=== PATIENT | male | born 1945 | race Caucasian/White ===

== ENCOUNTER 2025-05-23 12:55 | Outpatient (AMB) | payer MEDICARE, OTHER, SELFPAY ==
--- NOTE | 2025-05-23 13:02 | A.OFFVIS_ITS ---
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 Health Risk Assessment Completed, no opioid use. Mini Cog score 5/5. Hypertension: The patient's blood pressure is 130/84 mmHg. He is on lisinopril 20 mg and denies any dizzy spells. Gout: The patient is on allopurinol 300 mg and reports no gout flares. Hyperlipidemia: The patient is taking pravastatin 20 mg for his cholesterol. History of Colonic Adenoma/ Prostate Cancer: The patient follows with urology and oncology at [facility] annually. He reports his PSA has been excellent. His last colonoscopy was in 2019 for the removal of a large adenoma, and he is unsure when his next one is due. Will obtain records. Hearing Loss: The patient wears hearing aids. [facility] Medical History (Updated 05/23/25 @ 17:04 by Whit Varma MD) Routine adult health maintenance Impaired fasting glucose Hyperlipidemia, unspecified Hypercalcemia Villous adenoma of rectum Prostate cancer Gout Primary hypertension Surgical History (Updated 05/23/25 @ 13:12 by Whit Varma MD) S/P hernia surgery History of rectal surgery Family History (Updated 05/23/25 @ 13:11 by Whit Varma MD) Other Coronary artery disease Questionnaire Medicare Wellness Checkup What is your age?: 80 or older What gender do you identify with?: male During the past 4 weeks, how much have you been bothered by emotional problems such as feeling anxious, depressed, irritable, sad or downhearted, and blue?: not at all During the past 4 weeks, has your physical & emotional health limited your social activities with family, friends, neighbors, or groups?: not at all During the past 4 weeks, how much bodily pain have you generally had?: mild pain During the past 4 weeks, was someone available to help you if you needed & wanted help?: yes, as much as I wanted During the past 4 weeks, what was the hardest physical activity you could do for at least 2 minutes?: moderate Can you get to places out of walking distance without help? (For eg., can you travel alone on buses, taxis or drive your car?): Yes Can you go shopping for groceries or clothes without someone's help?: Yes Can you prepare your own meals?: Yes Can you do your housework without help?: Yes Because of any health problems, do you need the help of another person with your personal care needs such as eating, bathing, dressing or getting around the house?: No Can you handle your own money without help?: Yes During the past 4 weeks, how would you rate your health in general?: very good During the past 4 weeks how have things been going for you?: pretty well Are you having difficulties driving your car?: no Do you always fasten your seat belt when you are in a car?: yes, usually During past 4 weeks, have you been bothered by the following: never: Falling or dizzy when standing up, Trouble eating well?, Teeth or denture problems? and Tiredness or fatigue?, sometimes: Problems using the telephone? and always: Sexual problems? Have you fallen 2 or more times in the past year?: No Are you afraid of falling?: No Are you a smoker?: no During the past 4 weeks, how many drinks of wine, beer, or other alcoholic beverages did you have?: 1 drink or less per week Do you exercise for about 20 minutes 3 or more times a week?: yes, most of the time Have you been given information to help with the following?: no: Hazards in your house that might hurt you? and no: Keeping track of your medications? How often do you have trouble taking medicines the way you have been told to take them?: I always take medicine as prescribed How confident are you that you can control & manage most of your health problems?: very confident What is your race?: White PHQ-9 Over the last 2 weeks, how often have you been bothered by any of the following problems? 1. Little interest or pleasure in doing things: not at all 2. Feeling down, depressed, or hopeless: not at all 3. Trouble falling or staying asleep, or sleeping too much: not at all 4. Feeling tired or having little energy: not at all 5. Poor appetite or overeating: not at all 6. Feeling bad about yourself - or that you are a failure or have let yourself or your family down: not at all 7. Trouble concentrating on things, such as reading the newspaper or watching television: not at all 8. Moving or speaking so slowly that other people could have noticed. Or the opposite - being so fidgety or restless that you have been moving around a lot more than usual: not at all 9. Thoughts that you would be better off or of hurting yourself in some way: not at all Total score: 0 Depression Screening Interpretation: Negative Depression Screening Done: Yes Source: Developed by Drs. José Manuel López, Tamara Castillo, Jovany Ramos and colleagues, with an educational ben from [employer]. Thrive Questionnaire Date Thrive assessed: 05/23/25 I am a: Patient What is your living situation today?: I have a steady place to live Within the past 12 months, did the food you bought not last and you didn't have the money to get more?: Never true Within the past 12 months, did you worry whether your food would run out before you got money to buy more?: Never true Do you have trouble paying for medicines?: No Do you have trouble getting transportation to medical appointments?: No Do you have trouble paying your heating and electricity bill?: No Do you have trouble taking care of your child, family member or friend?: No Do you have trouble with day-to-day activities such as bathing, preparing meals, shopping, managing finances, etc.?: No Are you currently unemployed and looking for a job?: No Are you interested in more education?: No Please select the resources that you would like help with: None Currently or been in a relationship where the following occur: No concerns reported THRIVE Score: 0 THAI-7 AMB Questionnaire THAI-7 Date THAI - 7 assessed: 05/23/25 Feeling nervous, anxious, or on edge: 0 = Not at all Not being able to stop or control worryin = Not at all Worrying too much about different things: 0 = Not at all Trouble relaxin = Not at all Being so restless that it is hard to sit still: 0 = Not at all Becoming easily annoyed or irritable: 0 = Not at all Feeling afraid as if something awful might happen: 0 = Not at all Total THAI-7 score (0-4 normal; 5-9 mild; 10-14 moderate; 15-21 severe): 0 Source: Developed by Drs. José Manuel López, Tamara Castillo, Jovany Ramos and colleagues, with an educational ben from [employer]. AUDIT C Alcohol Use Questionnaire (AUDIT-C) 1. How often do you have a drink containing alcohol?: Monthly or less 2. How many drinks containing alcohol do you have on a typical day when you are drinking?: 1 or 2 3. How often do you have six or more drinks on one occasion?: Never Total Score: 1 Review of Systems Narrative Review of Systems - General: Denies falls. Reports good mood. - Cardiovascular: Denies chest pain or dizzy spells. - Respiratory: Denies shortness of breath. - Musculoskeletal: Reports resolved back pain after yard work. - Endocrine: Denies symptoms of gout flares. Physical Exam Exam Exam: Physical Exam - Gen: NAD - HEENT: External auditory canals are clear bilaterally, with no redness or cerumen. Oropharynx is clear. - Neck: No cervical or supraclavicular lymphadenopathy. - Cardiovascular: Normal heart sounds. A soft murmur is present. - Lungs: Clear to auscultation bilaterally. - Abdomen: Soft, non-tender, with normal bowel sounds. - Extremities: No lower extremity edema. Vital Signs: Last Vital Signs Temp 96.9 F 05/23/25 13:06 Pulse 91 05/23/25 13:06 Resp 16 05/23/25 13:06 BP 130/84 05/23/25 13:06 BMI result Body Mass Index 23.7 Assessment & Plan Assessment & Plan (1) Routine adult health maintenance: Code(s): Z00.00 - Encounter for general adult medical examination without abnormal findings (2) Primary hypertension: Code(s): I10 - Essential (primary) hypertension (3) Hyperlipidemia, unspecified: Code(s): E78.5 - Hyperlipidemia, unspecified Qualifiers: Familial hypercholesterolemia type: unspecified type Hyperlipidemia type: familial hypercholesterolemia Qualified Code(s): E78.019 - Familial hypercholesterolemia, unspecified (4) Impaired fasting glucose: Code(s): R73.01 - Impaired fasting glucose (5) Prostate cancer: Code(s): C61 - Malignant neoplasm of prostate Plan Assessment and Plan 1. Medicare Annual Wellness Visit / Health Maintenance - The patient is here to re-establish care. - Plan includes ordering fasting labs (CBC, CMP, A1c, lipid panel, urine microalbumin) and advising the patient to get his flu shot. 2. Hypertension - Blood pressure is well-controlled at 130/84 mmHg on lisinopril 20 mg. - The plan is to continue the current medication. 3. Hyperlipidemia - Stable on pravastatin 20 mg. A lipid panel will be checked with routine labs. - The plan is to continue the current medication. 4. Gout - Stable with no flares on allopurinol 300 mg. - The plan is to continue the current medication. 5. History of Colonic Adenoma - The plan is for the patient to request a transfer of his complete records from [facility] and to confirm the due date for his next screening colonoscopy. 6. Heart Murmur - A long-standing soft murmur was noted on exam. - The patient denies symptoms like increased shortness of breath or leg swelling. - The plan is to review past records for a prior echocardiogram once they are received. 7. Wnoe-mnx-dxakvbm Supplements - The patient takes calcium, as recommended by [facility]. - Plan is to check calcium levels with routine labs and adjust as needed. Plan - Orders have been placed for fasting labs including a CBC, comprehensive metabolic panel, A1c, cholesterol panel, and a urine microalbumin. - The patient will continue his current medications: allopurinol 300 mg, lisinopril 20 mg, and pravastatin 20 mg. He will contact the office for refills as needed. - The patient was advised to obtain his flu vaccine. - The patient will contact [facility] to request a transfer of all his medical records to this office. - The patient will confirm with [facility] when he is due for his next screening colonoscopy. - Follow-up is scheduled in six months. Discussion Notes I discussed with the patient that his blood pressure is well-controlled on his current regimen. I noted the presence of a soft heart murmur and educated him on symptoms such as increased shortness of breath or leg swelling that would warrant concern. We discussed his vaccination status, and I encouraged him to get his flu shot. Patient Instructions - Go to a lab location to have your fasting bloodwork done. Do not eat or drink anything except water for 10 hours before the test. - Contact [facility]'s office and ask them to send all of your medical records to our office. - Ask your specialist at [facility] when you are due for your next colonoscopy. - Please get your flu shot. Orders: Orders Comprehensive Met. Panel Today E78.5 - Hyperlipidemia, unspecified, I10 - Essen tial (primary) hypertension, M10.9 - Gout, unspecified, R73.01 - Impaired fasting glucose Lipid Panel Today E78.5 - Hyperlipidemia, unspecified, I10 - Essential (primary) hypertension, M10.9 - Gout, unspecified, R73.01 - Impaired fasting glucose Hemoglobin A1c Today E78.5 - Hyperlipidemia, unspecified, I10 - Essential (primary) hypertension, M10.9 - Gout, unspecified, R73.01 - Impaired fasting glucose TSH reflex Free T4 Today C61 - Malignant neoplasm of prostate, E83.52 - Hypercalcemia Complete Blood Count Auto Diff Today E78.5 - Hyperlipidemia, unspecified, I10 - Essential (primary) hypertension, M10.9 - Gout, unspecified, R73.01 - Impaired fasting glucose Microalbumin, Random (w Creat) Today E78.5 - Hyperlipidemia, unspecified, I10 - Essential (primary) hypertension, M10.9 - Gout, unspecified, R73.01 - Impaired fasting glucose Medications: New multivitamin 1 tab PO DAILY zgzrrqpb-gri-kfdtj-fyk869-pzsm 500-500-66.7 mg (Ffnwwzesfns-Tgkfgsorbhq-OLU (with antiox)) tabs PO calcium carbonate (Calcium 600) 1,200 mg PO DAILY Patient Instructions: Check with your oncologist at [facility] regarding date of your next colonoscopy Have [facility] [place] all [place] to our office Get fasting labs, fast for 10 hours, you can drink water Quality Reporting (2019) Fall Risk Screening ([facility] 139) Last assessed Fall Risk: 05/23/25 Fall risk assessment: No Falls in past year Depression/Bipolar (159/160/161/177) PHQ-9: Total score: 0 Coding Level of Care Code Medicare Subsequent (G0439) Diagnoses Routine adult health maintenance Z00.00 Primary hypertension I10 Familial hypercholesterolemia, unspecified type E78.019 Familial hypercholesterolemia type: unspecified type Hyperlipidemia type: familial hypercholesterolemia Impaired fasting glucose R73.01 Prostate cancer C61
[2025-05-23 13:06] VITALS: BP 130/84; PULSE 91; RESP 16; TEMP 36.1; BMI 23.7
== END 2025-05-23 13:45 | disposition home or self-care (01) ==
LOC: HO.HMCHD 12:56
PROVIDERS: PCP Internal Medicine; Visit Provider Internal Medicine
DX: Z00.00 Encounter for general adult medical examination without abnormal findings (principal); I10 Essential (primary) hypertension; E78.019 Familial hypercholesterolemia, unspecified; C61 Malignant neoplasm of prostate; R73.01 Impaired fasting glucose

== ENCOUNTER 2025-05-30 09:46 | Outpatient (REF) | payer MEDICARE, OTHER, SELFPAY ==
--- OUTSIDE RECORDS SUMMARY | 2025-05-30 11:13 | XMS_ITS | Encounter Summary ---
Author Organization [facility] Address [address] [place] [address] Phone Care Team Providers Care Sole Stainer Name Role Phone Whit Varma MD Primary Care Provider + Chuck Nelson MD Unavailable [phone] Kt Her MD, DPHIL Unavailable [phone] Encounter Details Date Type Department Care Team (Late st Contact Info) Description 11/27/2019 Procedure Pass [facility] ENDO DEPT [address] [facility], 4th [place] [address] Social History Tobacco Use Types Packs/Day Years Used Date Smoking Tobacco: Former Cigarettes 0.5 50 Smokeless Tobacco: Never Alcohol Use Standard Drinks/Week Comments Yes 0 (1 standard drink = 0.6 oz pur e alcohol) Sex and Gender Information Value Date Recorded Sex Assigned at Male 11/03/2019 12:35 PM EDT Legal Sex Male 9:12 AM EST Gender Identity Not on file Sexual Orientation Not on file documented as of this encounter Plan of Treatment Upcoming Encounters Date Type Department Care Team (Late st Contact Info) Description 06/06/2025 10:00 AM EST Telemedicine [facility] [address] [facility], 7th Floor, [address] [place] [address] Chuck Nelson MD [address] [facility] [address] [place] [address] [email or web address] documented as of this encounter Visit Diagnoses Not on filedocumented in this encounter Care Teams Sole Stainer Relationship Specialty Start Date End Date Whit Varma MD PCP - General Internal Medicine 08/18/19 Chuck Nelson MD [address] [facility] [address] [place] [address] [email or web address] Consulting Provider Medical Oncology 01/09/20 Kt Her MD, DPHIL [address] [facility] [place] [address] [email or web address] Consulting Provider Radiation Oncology 02/02/20 documented as of this encounter Additional Source Comments The information contained in this document represents components of the legal health record. It is not the complete legal health record.[facility]
--- OUTSIDE RECORDS SUMMARY | 2025-05-30 11:13 | XMS_ITS | Encounter Summary ---
Author Organization [facility] Address [address] [facility] [address] [place] [address] Phone Care Team Providers Care Transportation Escort Name Role Phone Whit Varma MD Primary Care Provider + Chuck Nelson MD Unavailable [phone] Kt Her MD, DPHIL Unavailable + [phone] Encounter Details Date Type Department Care Team (Late st Contact Info) Description 01/24/2020 Procedure Pass [facility] Endoscopy Department [address] [place] [address] Social History Tobacco Use Types Packs/Day Years [...] Info) Description 06/06/2025 10:00 AM EST Telemedicine [facility] [address] [facility], 7th Floor, [address] [place] [address] Chuck Nelson MD [address] [facility] [address] [place] [address] [email or web address] documented as of this encounter Visit Diagnoses Not on filedocumented in this encounter Care Teams Transportation Escort Relationship Specialty Start Date End Date Whit Varma MD PCP - General Internal Medicine 08/18/19 Chuck Nelson MD [address] [facility] [address] [place] [address] [email or web address] Consulting Provider Medical Oncology 01/09/20 Kt Her MD, DPHIL [address] [facility] [place] [address] [email or web address] Consulting Provider Radiation Oncology 02/02/20 documented as of this encounter Additional Source Comments The information contained in this document represents components of the legal health record. It is not the complete legal health record.[facility]
--- OUTSIDE RECORDS SUMMARY | 2025-05-30 11:13 | XMS_ITS | Encounter Summary ---
Author Organization [facility] Address [address] [place] [address] Phone Care Team Providers Care Spiral Tube Winder Helper Name Role Phone Whit Varma MD Primary Care Provider + Chuck Nelson MD Unavailable [phone] Kt Her MD, DPHIL Unavailable [phone] Encounter Details Date Type Department Care Team (Late st Contact Info) Description 10/02/2019 Procedure Pass MRI, [facility] [place] [address] [address] [facility] [place] [id number] Social History Tobacco Use Types Packs/Day Years [...] Info) Description 06/06/2025 10:00 AM EST Telemedicine [facility] [address] [facility], 7th Floor, [address] [place] [address] Chuck Nelson MD [address] [facility] [address] [place] [address] [email or web address] documented as of this encounter Visit Diagnoses Not on filedocumented in this encounter Additional Health Concerns Infection Onset Date Last Indicated Resolved Time CoV-Risk Comment:Possible exposure during outpatient visit on 09/14/2019 09/19/2019 09/19/2019 10/03/2019 1:24 AM EDT documented as of this encounter Care Teams Spiral Tube Winder Helper Relationship Specialty Start Date End Date Whit Varma MD PCP - General Internal Medicine 08/18/19 Chuck Nelson MD [address] [facility] [address] [place] [address] [email or web address] Consulting Provider Medical Oncology 01/09/20 Kt Her MD, DPHIL [address] [facility] [place] [address] [email or web address] Consulting Provider Radiation Oncology 02/02/20 documented as of this encounter Additional Source Comments The information contained in this document represents components of the legal health record. It is not the complete legal health record.[facility]
--- OUTSIDE RECORDS SUMMARY | 2025-05-30 11:13 | XMS_ITS | Encounter Summary ---
Author Organization [facility] Address [address] [facility] [address] [place] [address] Phone Care Team Providers Care Reactor Kettle Operator Name Role Phone Whit Varma MD Primary Care Provider + Chuck Nelson MD Unavailable [phone] Kt Her MD, DPHIL Unavailable + [phone] Encounter Details Date Type Department Care Team (Late st Contact Info) Description 09/01/2019 Procedure Pass [facility] - MRI [address] [facility], [address]th [place] [address] Social History Tobacco Use Types Packs/Day Years Used Date Smoking Tobacco: Never Smokeless Tobacco: Never Sex and Gender Information Value Date Recorded Sex Assigned at Male 11/03/2019 12:35 PM EDT Legal Sex Male 9:12 AM EST Gender Identity Not on file Sexual Orientation Not on file documented as of this encounter Plan of Treatment Upcoming Encounters Date Type Department Care Team (Late st Contact Info) Description 06/06/2025 10:00 AM EST Telemedicine [facility] [address] [facility], 7th Floor, [address] [place] [address] Chuck Nelson MD [address] [facility] [address] [place] [address] [email or web address] documented as of this encounter Visit Diagnoses Not on filedocumented in this encounter Additional Health Concerns Infection Onset Date Last Indicated Resolved Time CoV-Risk Comment:Possible exposure during outpatient visit on 09/14/2019 09/19/2019 09/19/2019 10/03/2019 1:24 AM EDT documented as of this encounter Care Teams Reactor Kettle Operator Relationship Specialty Start Date End Date Whit Varma MD PCP - General Internal Medicine 08/18/19 Chuck Nelson MD [address] [facility] [address] [place] [address] [email or web address] [email or web address] Provider Medical Oncology 01/09/20 Kt Her MD, DPHIL [address] [facility] [place] [address] [email or web address] Consulting Provider Radiation Oncology 02/02/20 documented as of this encounter Additional Source Comments The information contained in this document represents components of the legal health record. It is not the complete legal health record.[facility]
--- OUTSIDE RECORDS SUMMARY | 2025-05-30 11:13 | XMS_ITS ---
Author Organization [facility] Address [address] [place] [address] Phone Care Team Providers Care Patient Account Analyst Name Role Phone Whit Varma MD Primary Care Provider + Chuck Nelson MD Unavailable Kt Her MD, DPHIL Unavailable [phone] Active Problems Problem Noted Date Diagnosed Date Post-operative pain 01/24/2020 Malignant neoplasm of prostate Cancer Staging:Clinical stage from 12/08/2019:Stage IIB(cT2, cN0, cM0, PSA: 14.3, Grade Group: 2, 12/08/19) - Signed by Chuck Nelson MD on 02/02/2020 Current Treatment and Therapy Plans No current plan information found. Past Treatment and Therapy Plans Oncology Therapy Plan Plan Name Start Date Discontinue Date Treatment Medications Discontinue Reason Plan Provider LEUPROLIDE ACETATE 4 MONTH (LUPRON DEPOT 4 MONTH) 01/19/2020 03/18/2020 leuprolide (4 month) (LUPRON DEPOT 4 MONTH) a. Therapy Complete Chuck Nelson MD
--- OUTSIDE RECORDS SUMMARY | 2025-05-30 11:13 | XMS_ITS | Clinical Summary ---
Author Organization [facility] Address [address] [facility] [address] [place] [address] Phone Care Team Providers Care Dietary Internship Name Role Phone Whit Varma MD Primary Care Provider + Chuck Nelson MD Unavailable [phone] Kt Her MD, DPHIL Unavailable [phone] Allergies Active Allergy Reactions Criticality Noted Date Comments Other Itching 09/11/2021 Soy Products Medications lisinopriL (PRINIVIL,ZESTRIL ) 10 MG tablet Take 10 mg by mouth daily. Active pravastatin (PRAVACHOL) 20 MG tablet Take 20 mg by mouth daily. Active allopurinol (ZYLOPRIM) 300 MG tablet Take 300 mg by mouth daily. Active bacillus coagulans-inulin 1 billion-250 cell-mg Cap Take 250 mg by mouth daily. Active therapeutic multivitamin tablet Take 1 tablet by mouth daily. Active glucosamine 500 mg Cap Take 500 mg by mouth daily. Active calcium carbonate/vitamin D3 (CALTRATE 600 PLUS D ORAL) Take 2 tablets by mouth daily. Active psyllium (METAMUCIL SUNRISE) Powd Take by mouth. 2 Active Active Problems Problem Noted Date Diagnosed Date Post-operative pain 01/24/2020 Malignant neoplasm of prostate Cancer Staging:Clinical stage from 12/08/2019:Stage IIB(cT2, cN0, cM0, PSA: 14.3, Grade Group: 2, 12/08/19) - Signed by Chuck Nelson MD on 02/02/2020 Immunizations Immunization Administration Dates Next Due Pneumococcal conjugate PCV13 01/25/2020(Deferred : Contraindication) Family History Medical History Relation Comments Pancreatic cancer Paternal Grandfather Relation Status Comments Paternal Grandfather Social History Tobacco Use Types Packs/Day Years Used Date Smoking Tobacco: Former Cigarettes 0.5 50 Smokeless Tobacco: Never Alcohol Use Standard Drinks/Week Comments Yes 0 (1 standard drink = 0.6 oz pur e alcohol) Education Answer Date Recorded Are you interested in more education? Not on ketan e 10/30/2022 Are you concerned about learning? Not on file 10/30/2022 No 10/30/2022 No 10/30/2022 Digital Access Answer Date Recorded No 12/01/2022 No 12/01/2022 Reliable internet access at home? Not on file 12/01/2022 Device with a working camera? Not on file Sex and Gender Information Value Date Recorded Sex Assigned at Male 11/03/2019 12:35 PM EDT Legal Sex Male 9:12 AM EST Gender Identity Not on file Sexual Orientation Not on file Last Filed Vital Signs Vital Sign Reading Time Taken Comments Blood Pressure 168/79 06/05/2024 10:57 AM EST Pulse 94 06/05/2024 10:57 AM EST Temperature 35.9 C (96.7 F) 06/05/2024 10:57 AM EST Respiratory Rate 16 06/05/2024 10:57 AM EST Oxygen Saturation 97% 06/05/2024 10:57 AM EST Inhaled Oxygen Concentration - - Weight 69.1 kg (152 lb 6.4 oz) 06/05/2024 10:57 AM EST Height 176.8 cm (5' 9.6 ) 01/24/2020 1:00 PM EDT Body Mass Index 22.12 01/24/2020 1:00 PM EDT Plan of Treatment Upcoming Encounters Date Type Department Care Team (Late st Contact Info) Description 06/06/2025 10:00 AM EST Telemedicine [facility] [address] [facility], [address] [place] [address] Chuck Nelson MD [address] [facility] [address] [place] [address] [email or web address] Health Maintenance Due Date Last Done Comments LIPID PANEL 1945 DEPRESSION SCREENING 1956 SMOKING Hx and SMOKELESS TOBACCO SCREENING 1957 ZOSTER VACCINES (1 of 2) 10/13/1963 COLOGUARD 1989 FIT TEST 1989 FOBT 1989 SIGMOIDOSCOPY 1989 VIRTUAL COLONOSCOPY 1989 RSV VACCINE (1 - 1-dose 75+ series) 10/13/2019 COLONOSCOPY 07/26/2020 01/24/2020 COLORECTAL CANCER SCREENING 07/26/2020 CREATININE LEVEL 01/24/2021 01/25/2020, 02/2020, 09/01/2019, Additional history exists POTASSIUM LEVEL 01/24/2021 01/25/2020, 09/01/2019 INFLUENZA VACCINE (#1) 2025 COVID-19 VACCINE ( season) 2025 04/16/2022, 04/03/2021, 09/03/2020, Additional history exists Adult Td,Tdap Booster 11/02/2033 11/03/2023, 019 PNEUMOCOCCAL VACCINES (50+ years) Completed 04/22/2022, 02/22/2020 HEPATITIS A VACCINES Aged Out No long er eligible based on patient's age to complete this topic HIB VACCINES Aged Out No longer eligi ble based on patient's age to complete this topic MENINGOCOCCAL VACCINES (ACWY) Aged Out No longer eligible based on patient's age to complete this topic MENINGOCOCCAL VACCINES (B) Aged Out N o longer eligible based on patient's age to complete this topic Medical Devices Implanted Type Area Bill Of Lading Clerk Device Identifier Shelf Expiration Date Model / Serial / Lot System [employer] Silvia - [id number] Implanted:Qty: 1 on 03/21/2020 by Bonita Alonso MD at [facility] [place] 03/09/2021 [id number] / / [id number] Visicoil Aqanife 30cm Pre-Loaded Marker Radiology - [id number] Implanted:Qty: 1 on 03/21/2020 by Bonita Alonso MD at [facility] [employer] 03/04/2022 VC-050-005 -PL30 / / [id number] Visicoil Aqanife 30cm Pre-Loaded Marker Radiology - [id number] Implanted:Qty: 1 on 03/21/2020 by Bonita Alonso MD at [facility] [employer] 03/04/2022 VC-050-005 -PL30 / / [id number] Visicoil Aqanife 30cm Pre-Loaded Marker Radiology - [id number] Implanted:Qty: 1 on 03/21/2020 by Bonita Alonso MD at [facility] [employer] 03/04/2022 VC-050-005 -[id number] / / [id number] Procedures Procedure Name Priority Date/Time Associated Diagnosis Comments BASIC METABOLIC PANEL (BMP) Routine 01/25/2020 7:13 AM EDT ENDOSCOPY, COLON 01/24/2020 2:52 PM EDT from Last 3 Months or Most Recently Relevant to Health Maintenance Results * (ABNORMAL) Basic metabolic panel (01/25/2020 7:13 AM EDT) SODIUM 141 136 - 145 mmol/L [facility] POTASSIUM 4.1 3.4 - 5.1 mmol/L [facility] CHLORIDE 103 98 - 107 mmol/L [facility] CO2 24 22 - 31 mmol/L [facility] BUN 14 6 - 23 mg/dL [facility] CREATININE 0.88 0.50 - 1.20 mg/dL [facility] GLUCOSE 136(H) 70 - 100 mg/dL [facility] CALCIUM 8.7(L) 8.8 - 10.7 mg/dL [facility] EGFR 84 >59 mL/min/1.7 3m2 [facility] Comment:Estimated glomerular filtration rate calculated using the CKD-EPI equation. ANION GAP 14 7 - 17 mmol/L [facility] Blood 01/25/2020 7:13 AM EDT 01/25/2020 8:23 AM EDT Damaris Deng MD LAB BLOOD BKR ORDERABLES F inal Result [facility] [address] [place] [address] * ENDOSCOPY, COLON (01/24/2020 2:52 PM EDT) 01/24/2020 2:52 PM EDT Narrative Transcriptions Janneth Anne MD, PhD - 01/24/2020 2:52 PM EDT [facility] Gastroenterology Patient Name: Stanford Bledsoe Procedure Date: 01/24/2020 2:52 PM Date of : 1945 Admit Type: Outpatient Age: 74 Room: 5 Gender: Male Note Status: Finalized Attending MD: JANNETH ANNE MD Procedure: Colonoscopy Indications: Therapeutic procedure for known rectal mass Patient Profile: This is a 74 year old male. Refer to note in patient chart for documentation of history and physical. Providers: JANNETH ANNE MD, LINDA PISANO RN Referring MD: Micheal San (Referring MD) Medicines: General Anesthesia Complications: No immediate complications. Procedure: Pre-Anesthesia Assessment: - Prior to the procedure, a History and Physical was performed, and patient medications, allergies and sensitivities were reviewed. The patient's tolerance of previous anesthesia was reviewed. - The risks and benefits of the procedure and the sedation options and risks were discussed with the patient. All questions were answered and informed consent was obtained. - ASA Grade Assessment: II - A patient with mild systemic disease. After informed consent was obtained, the scope was passed under direct vision. Throughout the procedure, the patient's blood pressure, pulse, and oxygen saturations were monitored continuously. The Endoscope was introduced through the anus and advanced to the descending colon to examine a mass. This was the intended extent. The colonoscopy was performed without difficulty. The patient tolerated the procedure well. The quality of the bowel preparation was good. Findings: A non-obstructing large mass was found in the rectum (LST-G mixed). The mass was circumferential (involving 100% of the lumen circumference). The mass measured 8 cm in length. No bleeding was present. Preparations were made for endoscopic submucosal dissection. 250 mL of a 6% hetastarch solution mixed with 1:100,000 solution of epinephrine with indigo carmine was injected with partial lift of the lesion from the muscularis propria. A circumferential incision around the lesion into the submucosa was performed with a dual knife. The lesion was then dissected from the underlying deep layers with the electrocautery knife and retrieved with a snare. An 20 x 8 cm area was resected. Resection and retrieval were complete. There was no bleeding at the end of the procedure. Coagulation for hemostasis using a coagrasper was successful. Area was successfully injected with 4 mL of triamcinolone (40 mg/mL) for a stricture prevention. Estimated blood loss was minimal. 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 Complete removal was accomplished. - Endoscopic submucosal dissection was performed. Resection and retrieval were complete. Recommendation: - Await pathology results. - Clear liquid diet today. - Full liquid diet for 1 day. - Soft diet for 5 days. - No aspirin, ibuprofen, naproxen, or other non-steroidal anti-inflammatory drugs for 2 weeks after polyp removal. - Cipro (ciprofloxacin) 500 mg PO BID for 5 days. - Flagyl (metronidazole) 500 mg PO TID for 5 days. Attending Participation: I personally performed the entire procedure. JANNETH ANNE MD 01/24/2020 6:22:45 PM Number of Addenda: 0 Note Initiated On: 01/24/2020 2:52 PM Micheal San MD GI PROCEDURE ORDERABLES Kaylan l Result from Last 3 Months or Most Recently Relevant to Health Maintenance Insurance MEDICARE PART A & B [facility] EXTENSION MEDICARE SUPPLEMENT MEDICARE PART A & B [facility] EXTENSION MEDICARE SUPPLEMENT MEDICARE PART A & B [employer] EXTENSION MEDICARE SUPPLEMENT MEDICARE PART A & B [employer] [facility] EXTENSION MEDICARE SUPPLEMENT MEDICARE PART A & B [facility] MEDICARE SUPPLEMENT MED[facility]ARE PART [facility] & [facility] SUPPLEMENT MEDICARE PART A & B [facility] EXTENSION MEDICARE SUPPLEMENT MEDICARE PART A & B [employer] MEDICARE SUPPLEMENT MEDICARE PART A & B [employer] EXTENSION MEDICARE SUPPLEMENT Advance Directives For more information, please contact: [phone] (9AM - 5PM [facility] * Full Code (Presumed) (Latest Code Status on File) Date Activated Date Inactivated Comments 01/24/2020 7:02 PM Care Teams Dietary Internship Relationship Specialty Start Date End Date Whit Varma MD PCP - General Internal Medicine 08/18/19 Chuck Nelson MD [address] [facility] [address] [place] [address] [email or web address] Provider Medical Oncology 01/09/20 Kt Her MD, DPHIL [address] [place], [place] [address] [place] [address] [email or web address] Consulting Provider Radiation Oncology 02/02/20 Additional Source Comments The information contained in this document represents components of the legal health record. It is not the complete legal health record.[facility]
[2025-05-30 13:23] LABS: MANUAL DIFF FLAG NO
[2025-05-30 13:27] LABS: Hematocrit 39.3 % (42.0-52.0); Hemoglobin 13.3 g/dl (14.0-18.0); Imm Gran Abs Auto 0.02 X10*3/uL (0.00-0.03); Imm Gran Pct Auto 0.3 % (0.0-0.4); Lymphocytes Absolute Auto 1.9 X10*3/uL (1.2-4.9); Mean Corpuscular HGB Conc 33.8 g/dl (31.0-36.0); Mean Corpuscular Hemoglobin 33.5 pg (27.0-33.0); Mean Corpuscular Volume 99.0 fL (80.0-98.0); NRBC Abs Auto 0.000 X10*3/uL (0.0-0.012); NRBC Pct Auto 0.0 /100WBC (0.0-0.2); Platelet Count 213 X10*3/uL (160-400); Red Blood Count 3.97 X10*6/uL (4.60-5.80); White Blood Count 6.1 X10*3/uL (4.8-10.8)
[2025-05-30 15:31] LABS: Alanine Aminotransferase 18 U/L (0-40); Albumin Level 4.6 g/dL (3.5-5.0); Alkaline Phosphatase 62 U/L (39-117); Anion Gap 13 (12-20); Aspartate Amino Transferase 27 U/L (5-37); Blood Urea Nitrogen 23 mg/dL (9-16); Calcium 9.5 mg/dL (8.4-10.2); Carbon Dioxide 28 mmol/L (22-29); Chloride 106 mmol/L (96-108); Cholesterol 178 mg/dL (<200); Estimated Glomerular Filt Rate 60; HDL Cholesterol 51 mg/dL (>40); Potassium 4.2 mmol/L (3.3-5.1); Sodium 143 mmol/L (135-145); Total Protein 7.7 g/dL (6.5-8.0); Triglycerides 202 mg/dL (<150)
== END 2025-05-30 09:47 | disposition home or self-care (01) ==
LOC: HO.HKASLDS 09:46
PROVIDERS: PCP Internal Medicine; Visit Provider Internal Medicine
DX: I10 Essential (primary) hypertension (principal); R73.01 Impaired fasting glucose; E78.5 Hyperlipidemia, unspecified; M10.9 Gout, unspecified; E83.52 Hypercalcemia; C61 Malignant neoplasm of prostate
CPT/HCPCS: 36415; 80053; 80061; 83036; 84443; 85025